=== PATIENT | male | born 1965 | race African-American/Black ===

== ENCOUNTER 2019-12-04 21:19 | Inpatient (IN) | payer OTHER ==
[2019-12-04 22:18] VITALS: BMI 39.9
--- NOTE | 2019-12-04 22:45 | HP ---
CIWA Score Nausea/Vomitin Muscle Tremors: 4-Moderate,w/Arms Extend Anxiety: 4-Mod. Anxious/Guarded Agitation: 4-Moderately Restless Paroxysmal Sweats: 3 Orientation: 0-Oriented Tacttile Disturbances: 0-None Auditory Disturbances: 0-None Visual Disturbances: 0-None Headache: 0-None Present CIWA-Ar Total Score: 18 - Admission Criteria OASAS Guidelines: Admission for Medically Managed Detox: Requires at least one of the followin. CIWA greater than 12 2. Seizures within the past 24 hours 3. Delirium tremens within the past 24 hours 4. Hallucinations within the past 24 hours 5. Acute intervention needed for co occurring medical disorder 6. Acute intervention needed for co occurring psychiatric disorder 7. Severe withdrawal that cannot be handled at a lower level of care (continued vomiting, continued diarrhea, abnormal vital signs) requiring intravenous medication and/or fluids 8. Patient presents the following: CIWA greater than 12, Acute intervention needed for co-occurring med or psych disorder (SEEN IN [facility] TODAY) Admission Criteria Met: Admission criteria met Admitting History and Physical - Smoking History Smoking history: Former smoker Admission [facility] Chief Complaint: C/O ALCOHOL WITHDRAWAL. SEEKING DETOX Allergies/Adverse Reactions: Allergies Allergy/AdvReac Type Severity Reaction Status Date / Time No Known Allergies Allergy Verified 12/04/19 22:17 History of Present Illness: HERE FOR ALCOHOL DETOX. CLIENT IS REFERRED BY [facility] AFTER PRESENTING THERE WITH ALCOHOL INTOXICATION. HE PRESENTS NOW [facility] C/O WITHDRAWAL SX'S. LAST ALCOHOL INTAKE ABOUT 11 AM. CLIENT REPORTS DAILY ALCOHOL INTAKE, + EYE MUSHROOM GROWER, + BLACK OUTS. DENIES SEIZURE. DENIES CLEAN TIME IN THE PAST 12 MONTHS. [place], UNEMPLOYED, DENIES LEGALS Exam Limitations: No Limitations - Ebola screening Have you traveled outside of the country in the last 21 days: No Have you had contact with anyone from an Ebola affected area: No Have you been sick,other than usual withdrawal symptoms: No Do you have a fever: No - Review of Systems Constitutional: Chills, Loss of Appetite, Night Sweats, Changes in sleep EENT: reports: No Symptoms Reported Respiratory: reports: No Symptoms reported Cardiac: reports: No Symptoms Reported GI: reports: Diarrhea, Nausea, Poor Appetite, Poor Fluid Intake, Vomiting : reports: No Symptoms Reported Musculoskeletal: reports: No Symptoms Reported Integumentary: reports: Dryness Neuro: reports: No Symptoms reported Endocrine: reports: No Symptoms Reported Hematology: reports: No Symptoms Reported Psychiatric: reports: Orientated x3, Anxious, Depressed (DENIES SI) Other Systems: Reviewed and Negative Patient History - Patient Medical History Hx Anemia: No Hx Asthma: No Hx Chronic Obstructive Pulmonary Disease (COPD): No Hx Cancer: No Hx Cardiac Disorders: No Hx Congestive Heart Failure: No Hx Hypertension: No Hx Hypercholesterolemia: No Hx Pacemaker: No HX Cerebrovascular Accident: No Hx Seizures: No Hx Dementia: No Hx Diabetes: No Hx Gastrointestinal Disorders: No Hx Liver Disease: No Hx Genitourinary Disorders: No Hx Sexually Transmitted Disorders: No Hx Renal Disease (ESRD): No Hx Thyroid Disease: No Hx Human Immunodeficiency Virus (HIV): No Hx Hepatitis C: No Hx Depression: Yes Hx Suicide Attempt: No Hx Bipolar Disorder: No Hx Schizophrenia: No Other Medical History: GOUT - Patient Surgical History Past Surgical History: Yes Hx Neurologic Surgery: No Hx Cataract Extraction: No Hx Cardiac Surgery: No Hx Lung Surgery: No Hx Breast Surgery: No Hx Breast Biopsy: No Hx Abdominal Surgery: No Hx Appendectomy: No Hx Cholecystectomy: No Hx Genitourinary Surgery: No Hx Section: No Hx Orthopedic Surgery: No Other Surgical History: HERNIA- 2008 Anesthesia Reaction: No - PPD History Previous Implant?: Yes Documented Results: Negative w/o proof Implanted On Prior [facility] Admission?: No PPD to be Administered?: Yes - Smoking Cessation Smoking history: Never smoked Have you smoked in the past 12 months: No Cigars Per Day: 0 Hx Chewing Tobacco Use: No Initiated information on smoking cessation: No - Substance & Tx. History Hx Alcohol Use: Yes Hx Substance Use: Yes Substance Use Type: Alcohol Hx Substance Use Treatment: Yes (DOES NOT RECALL) - Substances abused Alcohol Substance route: Oral Frequency: Daily Amount used: liqour- 3 pints, beer- 1 six pk Age of first use: 20 Date of last use: 12/04/19 Admission Physical Exam [facility] - Vital Signs Vital Signs: Vital Signs - 24 hr 12/04/19 12/04/19 22:17 22:18 Temperature 96.6 F L 96.6 F L Pulse Rate 71 71 Respiratory 18 18 Rate Blood Pressure 121/68 121/68 - Diagnostic (1) Alcohol dependence with withdrawal, uncomplicated Current Visit: Yes Status: Acute (2) Homeless Current Visit: Yes Status: Suspected (3) Obese Current Visit: Yes Status: Acute Qualifiers: Obesity classification: adult class 2 (BMI 35 - 39.9) (4) Gout Current Visit: Yes Status: Chronic Qualifiers: Gout site: ankle (5) Depressed Current Visit: Yes Status: Suspected (6) Alcohol-induced mood disorder Current Visit: Yes Status: Suspected Cleared for Admission S - Detox or Rehab [facility] Level of Care: Medically Managed Detox Regimen/Protocol: Librium Claeared for Rehab Admission: No Breathalyzer - Breathalyzer Breathalyzer: 0.186 Urine Drug Screen - Test Device Lot number: [id number] Expiration date: 01/28/21 - Control Is test valid?: Yes - Results Drug screen NEGATIVE: No Urine drug screen results: BZO-Benzodiazepines Inpatient Rehab Admission - Rehab Decision to Admit Inpatient rehab admission?: No
[2019-12-04] MEDS ORDERED: IBUPROFEN 400 MG TABLET (FP) PO PRN (22:49)
[2019-12-04] MEDS ORDERED: chlordiazePOXIDE HCL 25 MG CAPSULE PO PRN (22:49)
[2019-12-04] MEDS ORDERED: P-EPHED 60MG/TRIPROLIDI 2.5MG TABLET PO PRN (22:49)
[2019-12-04] MEDS ORDERED: MAGNESIUM HYDROX 2400MG/30ML ORAL SUSPENSION 30 ML CUP PO PRN (22:49)
[2019-12-04] MEDS ORDERED: MAGNESIUM CITRATE 300 ML BOTTLE PO PRN (22:49)
[2019-12-04] MEDS ORDERED: BISMUTH SUBSALICYLATE 524 MG/30 ML UD PO PRN (22:49)
[2019-12-04] MEDS ORDERED: METHOCARBAMOL 500 MG TABLET PO PRN (22:49)
[2019-12-04] MEDS ORDERED: hydrOXYzine PAMOATE 25 MG CAPSULE (FP) PO PRN (22:49)
[2019-12-04] MEDS ORDERED: ACETAMINOPHEN 325 MG TABLET (FP) PO PRN ×2 (22:49)
[2019-12-04] MEDS ORDERED: ONDANSETRON *ODT* 4 MG TABLET SL ONE (22:49)
[2019-12-04] MEDS ORDERED: guaiFENesin 200 MG/10 ML 10 ML UNIT-DOSE CUPS PO PRN (22:49)
[2019-12-04] MEDS ORDERED: MAG HYDROX/AL HYDROX/SIMETH 30 ML UNIT-DOSE CUP PO PRN (22:49)
[2019-12-04] MEDS ORDERED: MENTHOL/PHENOL 1 EACH UD MM PRN (22:49)
[2019-12-04] MEDS ORDERED: DICYCLOMINE HCL 10 MG CAPSULE PO PRN (22:49)
[2019-12-05] MEDS: chlordiazePOXIDE HCL 25 MG CAPSULE PO SCH ×2 (00:05→05:28)
[2019-12-05 06:36] VITALS: BP 158/89; PULSE 86; TEMP 97.7
--- NOTE | 2019-12-05 09:30 | CONSULT ---
[facility] Psychiatric Consult - Data Date of interview: 12/05/19 Psychiatric History: Patient could not be seen because he signed out against medical advice
--- NOTE | 2019-12-05 09:37 | PN ---
S CIWA - CIWA Score Nausea/Vomitin-Mild Nausea/No Vomiting Muscle Tremors: 2 Anxiety: 2 Agitation: 2 Paroxysmal Sweats: No Perspiration Orientation: 0-Oriented Tacttile Disturbances: 1-Very Mild Itch/Numbness Auditory Disturbances: 0-None Visual Disturbances: 0-None Headache: 2-Mild CIWA-Ar Total Score: 10 S Progress Note (SOAP) Subjective: alert,irritable,anxious,interrupted sleep,tremor,pain in the body back,nausea Objective: 12/05/19 09:36 Vital Signs Temperature 97.7 F 12/05/19 06:35 Pulse Rate 86 12/05/19 06:35 Respiratory Rate 20 12/05/19 06:35 Blood Pressure 158/89 12/05/19 06:35 O2 Sat by Pulse Oximetry (%) 96 12/05/19 06:35 Assessment: 12/05/19 09:36 withdrawal symptom Plan: continue detox librium regimen
--- NOTE | 2019-12-05 09:41 | PN ---
[facility] Progress Note Note: patient did not want to complete treatment due to personal issue,high risks of relapsing explained,patient understood, signed release ama,patient will follow up with medical provider for medical issue and out patient program aa meeting
--- NOTE | 2019-12-05 09:47 | DS ---
[facility] Detox Discharge Summary Admission Date: 12/04/19 Discharge Date: 12/05/19 - History Present History: Alcohol Dependence Additional Comments: alert,oriented x3 ambulation on the unit lung clear to auscultation bilaterally abdomen soft,no distension,no pain,no tenderness patient could not complete treatment due to personal issue,high risks of relapsing explained,patient understood, signed release ama patient will follow up with his medical provider for medical issue and out patient program aa meeting left the unit in stable condition Pertinent Past History: gout - Physical Exam Results Vital Signs: Vital Signs Temperature 97.7 F 12/05/19 06:35 Pulse Rate 86 12/05/19 06:35 Respiratory Rate 12/05/19 06:35 Blood Pressure 158/89 12/05/19 06:35 O2 Sat by Pulse Oximetry (%) 96 12/05/19 06:35 Pertinent Admission Physical Exam Findings: withdrawal signs and symptom Vital Signs Temperature 97.7 F 12/05/19 06:35 Pulse Rate 86 12/05/19 06:35 Respiratory Rate 12/05/19 06:35 Blood Pressure 158/89 12/05/19 06:35 O2 Sat by Pulse Oximetry (%) 96 12/05/19 06:35 - Medication Discharge Medications: Ambulatory Orders NK [No Known Home Medication] 12/04/19 - Diagnosis (1) Alcohol dependence with withdrawal, uncomplicated Current Visit: Yes Status: Acute (2) Obese Current Visit: Yes Status: Acute Qualifiers: Obesity classification: adult class 2 (BMI 35 - 39.9) (3) Gout Current Visit: Yes Status: Chronic Qualifiers: Gout site: ankle (4) Alcohol-induced mood disorder Current Visit: Yes Status: Suspected - AMA Did Patient Leave Against Medical Advice: Yes
[2019-12-05] MEDS ORDERED: ALLOPURINOL 100 MG TABLET (FP) PO SCH (10:00)
[2019-12-05] MEDS ORDERED: PRENATAL VITAMINS W/ FOLIC ACID TABLET (FP) PO SCH (10:00)
--- NOTE | 2019-12-05 12:07 | EKG ---
Test Reason : Blood Pressure : / mmHG Vent. Rate : 074 BPM Atrial Rate : 074 BPM P-R Int : 146 ms QRS Dur : 102 ms QT Int : 400 ms P-R-T Axes : 050 061 022 degrees QTc Int : 444 ms NORMAL SINUS RHYTHM SEPTAL INFARCT , AGE UNDETERMINED ABNORMAL ECG NO PREVIOUS ECGS AVAILABLE Confirmed by MD Edgard, [place] ([id number]) on 12/05/2019 12:06:52 PM Referred By: Elfego Olivia Confirmed By:[place] Rene MD
[2019-12-05] MEDS ORDERED: THIAMINE HCL 100 MG TABLET (FP) PO SCH (22:00)
[2019-12-05] MEDS ORDERED: MELATONIN 5 MG TABLETS PO SCH (22:00)
[2019-12-06] MEDS ORDERED: chlordiazePOXIDE HCL 25 MG CAPSULE PO SCH (05:00)
[2019-12-07] MEDS ORDERED: chlordiazePOXIDE HCL 10 MG CAPSULE PO PRN
[2019-12-07] MEDS ORDERED: chlordiazePOXIDE HCL 10 MG CAPSULE PO SCH (05:00)
[2019-12-08] MEDS ORDERED: chlordiazePOXIDE HCL 10 MG CAPSULE PO SCH (05:00)
[2019-12-09] MEDS ORDERED: chlordiazePOXIDE HCL 10 MG CAPSULE PO ONE (05:00)
== END 2019-12-05 09:51 | disposition left against medical advice (07) | DRG 770 ==
LOC: YASAS 21:19 → Y6N 23:01
PROVIDERS: ADMIT Allergy & Immunology; ATTEND Allergy & Immunology
PROC: HZ2ZZZZ Detoxification Services for Substance Abuse Treatment (ICD-10-PCS; principal; 2019-12-04)
DX: F10.230 Alcohol dependence with withdrawal, uncomplicated (principal); F17.211 Nicotine dependence, cigarettes, in remission; F10.24 Alcohol dependence with alcohol-induced mood disorder; F32.9 Major depressive disorder, single episode, unspecified; M10.9 Gout, unspecified; E66.9 Obesity, unspecified; Z68.39 Body mass index [BMI] 39.0-39.9, adult; Z59.0 Homelessness
CPT/HCPCS: 93005; 93010; Q0162; U0003